=== PATIENT | female | born 1950 | race Caucasian/White ===

== ENCOUNTER 2016-07-20 10:08 | Emergency (ER) | payer MEDICARE ==
[2016-07-20] MEDS ORDERED: HYDROcodone/Acetaminophen 5/325 mg Tablet ONE (10:54)
--- NOTE | 2016-07-20 12:44 | RAD ---
RIGHT HIP RADIOGRAPHS 2 VIEWS: DATE: 07/20/16. PROVIDED CLINICAL HISTORY: Right hip pain without injury. FINDINGS: There is no evidence for a fracture or other acute osseous abnormality. Alignment appears anatomic. Right hip joint space appears preserved. Vascular calcifications are noted. IMPRESSION: No evidence for an acute osseous abnormality or significant arthropathy. POS: [facility]
== END 2016-07-20 11:12 | disposition home or self-care (01) ==
LOC: NAV ERS 10:08
DX: S39.012A Strain of muscle, fascia and tendon of lower back, initial encounter (principal); I10 Essential (primary) hypertension; E78.5 Hyperlipidemia, unspecified; F17.210 Nicotine dependence, cigarettes, uncomplicated; Z79.899 Other long term (current) drug therapy; X58.XXXA Exposure to other specified factors, initial encounter

== ENCOUNTER 2016-07-27 10:04 | Emergency (ER) | payer MEDICARE ==
[2016-07-27] MEDS ORDERED: Orphenadrine Citrate 60 MG/2 ML VIAL ONE (10:52)
[2016-07-27] MEDS ORDERED: Ketorolac Tromethamine 30 MG/ML VIAL ONE (10:52)
== END 2016-07-27 11:00 | disposition home or self-care (01) ==
LOC: NAV ERS 10:04
DX: M54.31 Sciatica, right side (principal); E78.5 Hyperlipidemia, unspecified; E78.00 Pure hypercholesterolemia, unspecified; I10 Essential (primary) hypertension; F17.210 Nicotine dependence, cigarettes, uncomplicated; Z79.899 Other long term (current) drug therapy
CPT/HCPCS: 96372; J1885; J2360